=== PATIENT | female | born 1990 | race Caucasian/White ===

== ENCOUNTER → 2021-05-01 | Day surgery (SDC) | payer OTHER, MEDICAID ==
[~2021-05-01] MED LIST: Acetaminophen/oxyCODONE 325-5 MG Tab PO ONE; Clindamycin Phosphate in D5W 900 MG in Premix Bag 1 BAG IV ONE; Lidocaine 1% with EPINEPHrine 1:100,000 20 ML MDV INFILT ONE; Ondansetron 4 MG/2 ML SDV IVPUSH ONE; Promethazine 6.25 MG in Sodium Chloride 0.9% 50 ML IV ONE; Scopolamine 1.5 MG Transdermal Patch TOP ONE; diphenhydrAMINE 50 MG/ML SDV IVPUSH ONE
== END ==
LOC: JD.SDS 06:58
PROVIDERS: ATTEND Surgery
DX: K80.10 Calculus of gallbladder with chronic cholecystitis without obstruction (principal); E78.5 Hyperlipidemia, unspecified; I10 Essential (primary) hypertension; J45.909 Unspecified asthma, uncomplicated; Z88.0 Allergy status to penicillin; Z79.899 Other long term (current) drug therapy; Z88.8 Allergy status to other drugs, medicaments and biological substances; Z87.891 Personal history of nicotine dependence; Z01.812 Encounter for preprocedural laboratory examination; Z20.822 Contact with and (suspected) exposure to COVID-19
CPT/HCPCS: 81025; U0002

== ENCOUNTER → 2021-05-01 | Day surgery (SDC) | payer OTHER, MEDICAID ==
[~2021-05-01] MED LIST changes: -Acetaminophen/oxyCODONE 325-5 MG Tab PO ONE; +Bupivacaine 0.5%/EPINEPHrine 1:200,000 50 ML MDV ONE; +Dexamethasone 4 MG/ML 5 ML MDV ONE; +HYDROmorphone 0.5 MG/0.5 ML Syringe ONE; +Ketamine 500 mg/10 ML MDV ONE; +Ketorolac 30 MG/ML SDV ONE; +Lactated Ringers 1,000 ML ONE; +Lidocaine 1% 4 ML ONE; +Lidocaine 1% with EPINEPHrine 1:100,000 10 ML MDV ONE; -Lidocaine 1% with EPINEPHrine 1:100,000 20 ML MDV INFILT ONE; +Midazolam 1 MG/ML 2 ML SDV ONE; -Ondansetron 4 MG/2 ML SDV IVPUSH ONE; +Ondansetron 4 MG/2 ML SDV ONE; -Promethazine 6.25 MG in Sodium Chloride 0.9% 50 ML IV ONE; +Propofol 200 MG/20 ML SDV ONE; +Rocuronium 50 MG/5 ML Vial ONE; -Scopolamine 1.5 MG Transdermal Patch TOP ONE; -diphenhydrAMINE 50 MG/ML SDV IVPUSH ONE; +fentaNYL 250 MCG/5 ML SDV ONE
== END ==
LOC: JD.SDS 07:30
PROVIDERS: ATTEND Surgery
DX: K80.10 Calculus of gallbladder with chronic cholecystitis without obstruction (principal); E78.5 Hyperlipidemia, unspecified; I10 Essential (primary) hypertension; J45.909 Unspecified asthma, uncomplicated; Z88.0 Allergy status to penicillin; Z79.899 Other long term (current) drug therapy; Z88.8 Allergy status to other drugs, medicaments and biological substances; Z87.891 Personal history of nicotine dependence; Z01.812 Encounter for preprocedural laboratory examination; Z20.822 Contact with and (suspected) exposure to COVID-19
CPT/HCPCS: 47562; J1100; J1170; J1885; J2250; J2405; J2704; J2710; J3010; J3490; J7120; 00790

== ENCOUNTER 2022-01-06 14:09 | Emergency (ER) | payer OTHER, MEDICAID ==
[2022-01-06] MEDS ORDERED: Proparacaine 0.5% Ophth Soln 15 ML Bottle ONE (16:43)
[2022-01-06] MEDS ORDERED: Proparacaine 0.5% Ophth Soln 15 ML Bottle EYEBOTH STA (16:54)
[2022-01-06] MEDS ORDERED: Fluorescein 1 MG Ophth Strip EYEBOTH ONE (17:32)
[2022-01-06] MEDS ORDERED: Erythromycin Base 0.5% Ophth Oint 1 GM Tube EYEBOTH ONE (18:42)
== END 2022-01-06 19:05 ==
LOC: JD.ED 14:09
DX: S05.01XA Injury of conjunctiva and corneal abrasion without foreign body, right eye, initial encounter (principal); S05.02XA Injury of conjunctiva and corneal abrasion without foreign body, left eye, initial encounter; Z88.0 Allergy status to penicillin; W22.09XA Striking against other stationary object, initial encounter
CPT/HCPCS: 99284; A9270